=== PATIENT | female | born 2000 | race Caucasian/White ===

== ENCOUNTER 2020-09-17 17:44 | Outpatient (CLI) | payer BC ==
[~2020-09-17 17:44] MED LIST: COLACE 100MG C100 MG PO; FEOSOL325 MG PO; IBUPROFEN600 MG PO; LORTAB 5-325 M1 EACH PO
== END 2020-09-17 20:23 | disposition home or self-care (01) ==
LOC: GENOP 17:44
DX: Z34.83 Encounter for supervision of other normal pregnancy, third trimester (principal); Z88.0 Allergy status to penicillin; Z88.8 Allergy status to other drugs, medicaments and biological substances; Z3A.38 38 weeks gestation of pregnancy
CPT/HCPCS: 59025; 81001; 83518; 96372; J0696

== ENCOUNTER 2020-09-25 05:23 | Inpatient (IN) | payer BC ==
[~2020-09-25] VITALS: Ht 162.6 cm; Wt 90.7 kg
[2020-09-25 06:02] LABS: HEMOGLOBIN 11.8 gm/dl (12.3-15.3); RED BLOOD COUNT 4.07 M/UL (4.00-5.10); WHITE BLOOD COUNT 9.7 K/UL (4.5-11.0)
[2020-09-25] MEDS ORDERED: VALACYCLOVIR500 MG PO (06:28)
[2020-09-25] MEDS ORDERED: DOCUSATE SODIU100 MG PO (10:51)
[2020-09-25] MEDS ORDERED: IBUPROFEN600 MG PO (10:51)
[2020-09-26 06:42] LABS: HEMOGLOBIN 10.2 gm/dl (12.3-15.3)
== END 2020-09-26 18:15 | disposition home or self-care (01) | DRG 807 ==
LOC: OB 05:23
PROVIDERS: ADMIT Obstetrics & Gynecology
PROC: 10E0XZZ Delivery of Products of Conception, External Approach (ICD-10-PCS; principal; 2020-09-25)
PROC: 0HQ9XZZ Repair Perineum Skin, External Approach (ICD-10-PCS; 2020-09-25)
PROC: 4A1HXCZ Monitoring of Products of Conception, Cardiac Rate, External Approach (ICD-10-PCS; 2020-09-25)
DX: O98.32 Other infections with a predominantly sexual mode of transmission complicating childbirth (principal); Z37.0 Single live birth; Z3A.39 39 weeks gestation of pregnancy; O70.0 First degree perineal laceration during delivery; O76 Abnormality in fetal heart rate and rhythm complicating labor and delivery; Z20.822 Contact with and (suspected) exposure to COVID-19; Z88.0 Allergy status to penicillin; O62.2 Other uterine inertia
CPT/HCPCS: 36415; 51702; 81001; 82800; 85014; 85018; 85025; J2210; J7120; U0003